=== PATIENT | male | born 1965 | race Caucasian/White ===

== ENCOUNTER 2023-09-01 14:25 | Inpatient (IN) | payer OTHER, SELFPAY ==
[2023-09-01] VITALS (33 sets, daily range): BP systolic 71–104; BP diastolic 35–70; BMI 27.3
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
[2023-09-01] MEDS: NSS 1000 IV ×3 (10:31→18:26)
[2023-09-01 10:34] LABS: % Basophils 0.4 % (0-2); % Eosinophils 1.8 % (0-6); % Immature Granulocytes 0.2 % (0-0.5); % Lymphocytes 23.1 % (20.5-51.1); % Monocytes 11.7 % (1.7-9.3); % Neutrophils 62.8 % (42.2-75.2); Absolute Eosinophils 0.1 10^3/uL (0-0.7); Absolute Lymphocytes 1.2 10^3/uL (1.2-3.4); Absolute Monocytes 0.6 10^3/uL (0.1-0.6); Absolute Neutrophils 3.2 10^3/uL (1.4-6.5); Hematocrit 37.9 % (39.0-52.0); Mean Corp Hgb Conc. 34.3 g/dL (33.0-37.0); Mean Corpuscular Hgb 32.3 pg (27.0-31.0); Nucleated Red Blood Cells % 0 % (-); Platelet Count 196 10^3/uL (130-400); Red Blood Cell Count 4.03 10^6/uL (4.70-6.10); Red Cell Dist. Width 12.8 % (11.5-14.5); White Blood Cell Count 5.1 10^3/uL (4.8-10.8)
[2023-09-01 10:45] LABS: ALT (SGPT) 25 U/L (0-50); AST (SGOT) 34 U/L (17-59); Albumin 3.7 g/dl (3.5-5.0); Alkaline Phosphatase 71 U/L (38-126); Blood Urea Nitrogen 16 mg/dl (9-20); Calcium 8.6 mg/dl (8.4-10.2); Carbon Dioxide 23 mmol/L (22-30); Chloride 105 mmol/L (98-107); Estimated Creatinine Clearance 91 ml/min; Glucose 148 mg/dl (70-99); Potassium 3.6 mmol/L (3.5-5.1); Sodium 137 mmol/L (135-145); Total Bilirubin 2.1 mg/dl (0.2-1.3); Total Protein 6.1 g/dl (6.3-8.2); eGFR > 60.00
[2023-09-01 10:56] LABS: Troponin I < 0.012 ng/ml
[2023-09-01 10:57] LABS: INR 0.96; PT 12.8 Sec (11.4-14.6)
[2023-09-01 10:58] LABS: APTT 24.2 Sec (23.4-35.0)
[2023-09-01] MEDS: KCL 40 MEQ PO (11:27)
[2023-09-01 11:30] LABS: Alcohol None Detected
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
[2023-09-01 15:40] LABS: TSH Reflex To Free T4 0.82 uIU/ml (0.47-4.68)
[2023-09-01 17:04] LABS: COVID-19 Antigen Negative (Negative)
[2023-09-01 18:06] LABS: Urine Albumin Negative (Neg - Trace); Urine Bilirubin Negative (Negative); Urine Character Clear (Clear); Urine Color Yellow; Urine Glucose Negative (Negative); Urine Ketone Negative (Negative); Urine Leukocyte Negative (Negative); Urine Nitrite Negative (Negative); Urine Occult Blood Negative (Negative); Urine Urobilinogen Negative (Neg - 1+)
[2023-09-01 21:25] LABS: Troponin I < 0.012 ng/ml
[2023-09-01] MEDS: LIPITOR 80 MG PO (22:30)
--- NOTE | 2023-09-01 23:28 | PTCARENOTE ---
Pt received start of shift, HR SR/SB 40s-60s. NSS infusing at 80mL/hr per order. Pt in bed with son at bedside Pt admission completed with assistance from pt's son. Educated pt and pt's son on plan of care. No questions at this time. Pt denies any
dizziness/lightheadedness at this time. Informed to notify RN if any changes, call escobedo within reach.
[2023-09-02 03:52] VITALS: BP 96/62
[2023-09-02 04:25] LABS: Hematocrit 35.4 % (39.0-52.0); Hemoglobin 12.2 g/dL (13.0-18.0); Mean Corp Hgb Conc. 34.5 g/dL (33.0-37.0); Mean Corpuscular Hgb 32.5 pg (27.0-31.0); Mean Corpuscular Volume 94.4 fL (80.0-94.0); Mean Platelet Volume 10.4 fL (7.4-10.4); Platelet Count 189 10^3/uL (130-400); Red Blood Cell Count 3.75 10^6/uL (4.70-6.10); Red Cell Dist. Width 12.9 % (11.5-14.5); White Blood Cell Count 3.9 10^3/uL (4.8-10.8)
[2023-09-02 04:49] LABS: Blood Urea Nitrogen 11 mg/dl (9-20); Calcium 8.5 mg/dl (8.4-10.2); Carbon Dioxide 24 mmol/L (22-30); Chloride 112 mmol/L (98-107); Estimated Creatinine Clearance 104 ml/min; Glucose 79 mg/dl (70-99); Magnesium 2.1 mg/dl (1.6-2.3); Potassium 3.9 mmol/L (3.5-5.1); Sodium 139 mmol/L (135-145); eGFR > 60.00
[2023-09-02 07:52] VITALS: BP 122/81
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
[2023-09-02] MEDS: PLAVIX 75 MG PO (09:14)
[2023-09-02] MEDS: FLUSH (NSS) 1 FLUSH IV (09:14)
[2023-09-02 09:17] VITALS: BP 113/67; BP 114/81; BP 116/72; PULSE 58; PULSE 59; PULSE 65
[2023-09-02 09:22] VITALS: BP 116/72
[2023-09-02 09:23] VITALS: BP 114/81
--- NOTE | 2023-09-02 10:38 | PTCARENOTE ---
"Patient NPO x meds. Seen by cardiology and the patient's son was telephoned to translate. Plan was for the patient to have a linq recorder implanted, however when the tailings dam laborer came for the patient, he refused the procedure. Notified the hospitalist "Theresa"and cardiology PA of his refusal for linq recorder and that he would prefer to follow up with his own data entry email processor."
--- NOTE | 2023-09-02 10:39 | W.PN.UPDATE ---
Update Note
Progress Note Update
patient now refusing linq stating he wants to follow up with his rubber moulding machine operator to discuss before committing to linq. diet ordered. son states he will call today to arrange appt with Dr. Espinosa. discussed with nursing
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
[2023-09-02 11:42] VITALS: BP 122/72
--- NOTE | 2023-09-02 12:05 | CM ---
spoke to pt in room with son on the phone to translate. pt lives with son in a 2 story home with no steps to enter. he denies any dc planning needs or dme's. plan is for dc to home when medically stable.
--- NOTE | 2023-09-02 13:17 | PTCARENOTE ---
Visitor at the bedside, son is planning on coming back later this afternoon. Patient tolerated eating a late breakfast and encouraged to get oob and ambulate. Patient walked in the alberto and sat in the visitor's lounge. Remained in SB/SR with HR 50's
to 60's, offers no complaints.
--- NOTE | 2023-09-02 14:37 | W.PN.HOSP.TC ---
Today's Communication/Plan
-
dc home
Assessment / Plan
Assessment / Plan
Assessment:
Bradycardia with hypotension
Prior History of sinus bradycardia
- s/p atropine with improvement
- unclear etiology overall
- CT head/c-spine negative
- trop neg
- noted prior episode with workup negative
- HR improved off BB, to be held at discharge
- TSH normal
- infectious workup (fever, hypothermia) so far negative
- Echo: Normal left ventricular chamber size. Normal left ventricular wall thickness. Low normal left ventricular systolic function. Left ventricular ejection fraction is 50-55% by visual estimate.� There is mild hypokinesis of the distal
anteroseptal, inferoseptal, and apical wall� stage I diastolic dysfunction suggestive of abnormal relaxation.
�Normal right ventricular size and function. Indexed LA volume is mildly abnormal (35-41 mL/m2). Mild tricuspid regurgitation. Estimated pulmonary artery pressure of 32 mmHg, assuming a right atrial pressure of 3 mmHg.
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
- no driving for 7 days
CAD status post CO with proximal LAD stent at [facility] 2018
- continue Statin/Plavix
- hold BB
Ischemic cardiomyopathy with EF 45%
Essential HTN
Former smoker
DVT ppx: SCDs
Code: Full
More than 30 minutes spent in discharge including
Final examination of the patient
Summarizing hospital stay
Instructions for continuing care to all relevant caregivers
Preparation of discharge records, prescriptions, and referral forms
Total time spent (in minutes): 41
Anticipated Discharge: Today
Subjective/Interval History
-
Date of Service: September 02, 2023
denies any complaints
LINQ offered, patient declined
Objective Data
-
Labs:
Laboratory Results
09/02/23
03:58
WBC 3.9 L
Hgb 12.2 L
Hct 35.4 L
Plt Count 189
Sodium 139
Potassium 3.9
Chloride 112 H
Carbon Dioxide 24
BUN 11
Creatinine 0.7
Glucose 79
Calcium 8.5
Vital Signs:
Vital Signs
Temp Pulse Resp BP Pulse Ox
98 F 58 20 122/72 98
09/02/23 11:41 09/02/23 12:45 09/02/23 11:41 09/02/23 11:42 09/02/23 11:41
I&O
09/01/23 09/02/23 09/03/23
06:59 06:59 06:59
Intake Total 720 / 720 240 / 240
Output Total 1150 / 1150
Balance 720 / 720 -910 / -910
Physical Exam
-
General: No Apparent Distress
HEENT: Normocephalic and Atraumatic
Respiratory: Negative Wheezes or Rales
Cardiac: Regular Rhythm and S1/S2
GI: Soft
Musculoskeletal: No Edema
Neuro: AO x 3
Psych: Calm
Data Reviewed
-
Total Time Spent with Patient (in minutes): 41
Labs: Labs Reviewed by me
--- NOTE | 2023-09-02 14:51 | W.DS.TRANS ---
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
-
Discharge Instructions:
Discharge Diagnosis/Procedures bradycardia, low blood pressure
Diet Low Cholesterol
Activity As tolerated
Driving Restrictions Not until seen by your Dr
Bathing Restrictions None
Instructions:
Stand-Alone Forms:
Changes to Home Medications: Yes
Discharge Medications:
DC Medications w/original date entered in [employer]
atorvastatin 80 mg tablet 80 mg PO HS High Cholesterol 01/20/17
clopidogrel 75 mg tablet 75 mg PO DAILY Blood Clot Prevention/Tx 01/20/17
nitroglycerin 0.4 mg sublingual tablet 0.4 mg sublingual [id number] PRN chest pain 01/20/17
Home Medication Changes
BB stopped
Pending Results: No
Total time spent discharging patient (in min): 41
--- NOTE | 2023-09-02 15:16 | PTCARENOTE ---
Dr. Trinidad in to see the patient and he is ok for discharge and to follow up with his nature photographer. Reviewed discharge instructions with the patient's son who was translating, reinforced no driving and to see nature photographer vivian. Patient discharged
home with his son.
--- NOTE | 2023-09-02 15:17 | PTCARENOTE ---
Reinforced to the patient's son that his father should no longer take his beta caryn.
== END 2023-09-02 17:07 | disposition home or self-care (01) | DRG 310 ==
LOC: IVU 14:25
PROVIDERS: ADMITTING PHYSICIAN Internal Medicine; EMERGENCY PHYSICIAN Emergency Medicine; FAMILY PHYSICIAN Internal Medicine; OTHER PHYSICIAN Internal Medicine Cardiovascular Disease
DX: R00.1 Bradycardia, unspecified (principal); I95.9 Hypotension, unspecified; R41.82 Altered mental status, unspecified; I25.10 Atherosclerotic heart disease of native coronary artery without angina pectoris; I10 Essential (primary) hypertension; I25.5 Ischemic cardiomyopathy; R68.0 Hypothermia, not associated with low environmental temperature; R55 Syncope and collapse; V49.40XA Driver injured in collision with unspecified motor vehicles in traffic accident, initial encounter; Y92.414 Local residential or business street as the place of occurrence of the external cause; I25.2 Old myocardial infarction; Z11.52 Encounter for screening for COVID-19; Z87.891 Personal history of nicotine dependence; Z95.5 Presence of coronary angioplasty implant and graft; Z79.02 Long term (current) use of antithrombotics/antiplatelets
CPT/HCPCS: 70450; 71045; 72125; 80048; 80053; 81003; 82077; 83735; 84443; 84484; 85025; 85027; 85610; 85730; 86850; 86900; 86901; 87040; 87502; 87811; 93005; 93306; 96360; 96361; 99291

== ENCOUNTER → 2023-10-13 06:12 | Day surgery (SDC) | payer OTHER, SELFPAY ==
[2023-10-13 06:25] VITALS: BP 121/75
[2023-10-13 06:30] VITALS: BMI 26.3
[2023-10-13 07:03] LABS: Hematocrit 41.5 % (39.0-52.0); Hemoglobin 14.1 g/dL (13.0-18.0); Mean Corpuscular Volume 94.3 fL (80.0-94.0); Mean Platelet Volume 10.5 fL (7.4-10.4); Platelet Count 223 10^3/uL (130-400); Red Cell Dist. Width 12.9 % (11.5-14.5); White Blood Cell Count 5.6 10^3/uL (4.8-10.8)
--- NOTE | 2023-10-13 07:09 | PTCARENOTE ---
Dr Carnes at pt bedside speaking to pt and pt's son. Pt's son is interpreting for pt due to pt understands little Bahamian. Pt's primary language is Ukranian.
--- NOTE | 2023-10-13 07:17 | PTCARENOTE ---
Dr Carnes at pt bedside speaking to pt and pt's son (pt's son interpreting). Pt's son states pt is not agreeable to a pacemaker or defibrillator. Pt's son states pt is agreeable to a loop recorder but not any other device.
[2023-10-13 07:20] LABS: Blood Urea Nitrogen 16 mg/dl (9-20); Calcium 9.8 mg/dl (8.4-10.2); Carbon Dioxide 27 mmol/L (22-30); Chloride 106 mmol/L (98-107); Estimated Creatinine Clearance 96 ml/min; Glucose 102 mg/dl (70-99); Potassium 4.2 mmol/L (3.5-5.1); Sodium 138 mmol/L (135-145); eGFR > 60.00
--- NOTE | 2023-10-13 07:27 | PTCARENOTE ---
Pt declined pacemaker and defibrillator but agreed to loop recorder.
--- NOTE | 2023-10-13 09:32 | ITS.CL.IMPLP ---
[employer] Lettering - Implant Loop
Implant Loop
Procedure Report:
ILR implant
Date of Procedure: 10/13/2023
Patient : 02/13/1966
Procedure: Insertable Loop Recorder
Indication: Unexplained syncope likely due to bradycardia
Implant: Reveal Linq1: Medtronic; Model# LNQ 1 1; Serial# [id number]
Technique: The patient was scheduled for EP study and either pacemaker or ICD implantation but the patient refused both pacemaker and ICD implantation after discussion with patient and son. Of note he refused pacemaker at prior admission for
syncope. As such we did not perform EP study and the patient elected to have a implantable loop recorder implanted because he wants to see the data from the recorder at future episodes of syncope and then may be agreeable to a device. I discussed
risk benefits and treatment alternatives for his refusal for the above implantation. I also placed him on a strict driving restriction and he agrees to not drive until the mechanism of syncope is determined.
The patient was prepped and draped in the usual fashion. Local anesthetic was applied to the left prepectoral subcutaneous tissue. A subcutaneous pocket was created with blunt dissection. Hemostasis was excellent. The device was placed in the
pocket. The skin was closed with steri-strips. The estimated blood loss was minimal. There were no complications.
Final Programming: FVT 231 30/40 beats
VT 176 16 beats
Asystole 3 sec
Jasiel 30 bpm for 4 beats
AF On AF only.
Conclusion: Uncomplicated insertable loop implant.
Recommendation: Routine Reveal care. I placed the patient on strict driving restriction and told this to patient and son. I communicated this to Dr. Espinosa as well.
cc: Dr. Shay Espinosa [facility]
== END | disposition home or self-care (01) ==
LOC: CATH 06:12
PROVIDERS: ATTENDING PHYSICIAN Internal Medicine Cardiovascular Disease; FAMILY PHYSICIAN Internal Medicine
DX: Z09 Encounter for follow-up examination after completed treatment for conditions other than malignant neoplasm (principal); R55 Syncope and collapse
CPT/HCPCS: 33285; 80048; 85027; C1764; C1894

== ENCOUNTER → 2023-11-17 09:08 | Outpatient (REF) | payer OTHER, SELFPAY ==
--- NOTE | 2023-11-17 11:37 | EEG.RPT ---
Electroencephalogram Report
Recording
Date of EE11/17/23
Type of EEG: Routine
Length of EEG recordin minutes
Done with Video Recording: Yes
Patient Status: Outpatient
Recording Conditions: Awake, Drowsy and Asleep
Hyperventilation Performed: No
Photic Stimulation Performed: Yes
Report
LESS THAN 1 HOUR EEG REPORT
EEG INTERPRETATION:
Unremarkable EEG for age in wakefulness through stage 1 sleep
CLINICAL CORRELATION:
A normal EEG does not rule out a diagnosis of epilepsy. If clinical suspicion for seizure persists, a prolonged recording may be warranted.
Clinical correlation is advised.
METHODS:
A 21 channel digitized electroencephalogram (EEG) was performed in the Clinical Neurophysiology Laboratory. The 10/20 international system of electrode placement was used with ECG and lateral/vertical eye movements recorded. Persyst quantitative EEG
analysis was performed.
ELECTROENCEPHALOGRAPHER IMPRESSION(S):
Quality of study
Good
Background
Unremarkable, well maintained, medium amplitude alpha-frequency and unremarkable anterior-posterior voltage gradient
With eye opening the background activity changed to a low voltage mixture of frequencies.
Sleep
Drowsiness present
Stage 1 sleep present
Hyperventilation
Did not activate the record
Photic Stimulation
Did activate the record at some intermediate flash frequencies
ECG
Normal sinus rhythm
== END ==
LOC: EEG 09:08
PROVIDERS: ATTENDING PHYSICIAN Internal Medicine
DX: R55 Syncope and collapse (principal); G40.309 Generalized idiopathic epilepsy and epileptic syndromes, not intractable, without status epilepticus
CPT/HCPCS: 95816

== ENCOUNTER → 2023-11-24 08:04 | Day surgery (SDC) | payer OTHER, SELFPAY ==
[2023-11-24] VITALS (9 sets, daily range): BP systolic 106–124; BP diastolic 67–78; BMI 26.2
[2023-11-24 08:49] LABS: Hematocrit 40.9 % (39.0-52.0); Hemoglobin 14.5 g/dL (13.0-18.0); Mean Corp Hgb Conc. 35.5 g/dL (33.0-37.0); Mean Corpuscular Hgb 32.4 pg (27.0-31.0); Mean Corpuscular Volume 91.3 fL (80.0-94.0); Mean Platelet Volume 10.2 fL (7.4-10.4); Platelet Count 242 10^3/uL (130-400); Red Blood Cell Count 4.48 10^6/uL (4.70-6.10); Red Cell Dist. Width 12.6 % (11.5-14.5); White Blood Cell Count 4.3 10^3/uL (4.8-10.8)
[2023-11-24 08:58] LABS: Blood Urea Nitrogen 16 mg/dl (9-20); Carbon Dioxide 24 mmol/L (22-30); Chloride 105 mmol/L (98-107); Estimated Creatinine Clearance 108 ml/min; Glucose 102 mg/dl (70-99); Potassium 4.1 mmol/L (3.5-5.1); Sodium 141 mmol/L (135-145); eGFR > 60.00
--- NOTE | 2023-11-24 10:30 | ITS.CL.ABL ---
Catalyst Operator - Ablation
Ablation
Procedure Report:
ELECTROPHYSIOLOGY ABLATION REPORT
Date of Procedure: 11-24-2023
Referring: Dr. Shay Espionsa
INDICATION: Unexplained syncope
HISTORY: History of 45 to 50% with prior infarction
PROCEDURE:
Under ultrasound guidance and after informed consent 2 6 Amharic sheath were placed in the right femoral vein. Baseline intracardiac measurements were obtained in sinus rhythm. Sinus node recovery times at 600 ms and 500 ms were performed. 2
quadripolar catheters were placed to the heart with one of the right atrium and right ventricle and the catheter to the right ventricle recorded His bundle and right bundle conduction times. Pacing from 2 ventricular sites at the RV apex and the
Para-Hisian region were performed. 604 100 ms drivetrain's with extrastimuli plus burst pacing from 2 sites was performed.
Atrial decremental extrastimuli were delivered from the HRA and the CS.
MEASUREMENTS:
BASELINE
A-A: 800 ms
P-P: 800 ms
A-H: 106 ms
H-V 52 ms
P-R: 158 ms
QRS: 80 ms
QT: 380 ms
SNRT: Normal at 600 and 500 ms
AVN Wenckebach: 470 ms with block in the AH interval under conscious sedation
AVN Fast Pathway ERP: No dual jarrell physiology noted, 600�370
HIS-Purkinje System: Normal; no distal block
Retrograde Conduction Decremental, Retrograde Block 570 ms
RVA ERP: 270 ms/600ms 250 ms/400ms
Parahisian ERP: 270 ms/600ms 240 ms/400ms
The patient was noninducible for ventricular tachyarrhythmias with burst ventricular pacing, burst atrial pacing, and single double and triple extrastimuli from 2 sites 600 [address] She is for manually removed in the EP lab from
the right femoral vein with adequate hemostasis.
COMPLICATIONS: None
SUMMARY: Noninducible for ventricular tachy arrhythmia.
RECOMMENDATIONS:
1. Proceed to dual-chamber pacemaker placement and removal of ILR
2. Please see separate EPS report for details of subsequent dual-chamber pacemaker placement
--- NOTE | 2023-11-24 12:17 | ITS.CL.PACE ---
Television Maintenance Worker - Pacemaker Implant
Pacemaker Implant
Procedure Report:
Date of Procedure: November 24, 2023
Patient : 1965
Procedure: Pacemaker Implantation.
Indication: Unexplained syncope with a heart rate of 20. Symptomatic sick sinus syndrome with syncope. See separate EPS report where he was noninducible for ventricular arrhythmia with AV block at 470 ms in the AH interval.
Implants:
Pulse Generator: [employer]; Model# W1 DR 01; SN: [id number]
RA Lead: Medtronic; Model# 4574; SN: [id number]
RV Lead: Medtronic; Model# 4074; SN: [id number]
Removed hardware:
Medtronic product number L and Q11 serial number [id number] implanted October 13, 2023
Technique: A time out was performed. The procedure site was identified. The patient was anesthetized by the anesthesia service. Preoperative sedation was administered. The patient was prepped and draped in the usual fashion. Local anesthetic was
applied to the left prepectoral subcutaneous tissue. A 3 inch incision was made 2.5 inches below the left clavicle. A subcutaneous pocket was created with blunt and sharp dissection and hemostasis controlled with Bovie cautery. The left axillary
vein was accessed within the pocket without difficulty. Hemostasis was excellent. The leads were introduced with 7 Fr hemostatic peel away introducer sheaths. The ventricular lead was placed at the right ventricular apex. The atrial lead was placed
in the right atrial appendage. 10 volt pacing did not capture the diaphragm. The leads were secured to the pectoralis muscle and fascia. The leads were appropriately attached to the device. The pocket was irrigated with antibiotic solution. The
device and leads were placed in the pocket. The incision was closed in three layers with absorbable suture. The estimated blood loss was minimal. There were no complications.
After the device was placed the patient's ILR was removed with a stab incision and closed with a 4.0 Vicryl.
Pulse fluoroscopy: 2.5 minutes and 23.58 mGy
Lead Analysis:
RA lead: P: 4.4 mV; Threshold: 0.75 V @ 0.5 ms; Impedance: 684 ohms.
RV lead: R: 7.5 mV; Threshold: 0.5 V @ 0.5 ms; Impedance: 1121 ohms.
Final Programming: AAIR�DDDR 60-130 beats a minute
Conclusion: Uncomplicated Medtronic pacemaker implant.
Recommendation: Routine post pacemaker care. Patient can resume driving in 1 week. Patient has an outpatient wound check in 7 to 10 days.
--- NOTE | 2023-11-24 14:44 | W.PN.UPDATE ---
Update Note
Progress Note Update
58 yo male s/p EPS/ Pacemaker implant and Linq explant (same day) He feels good, mild inc pain, site stable, EKG SR, CXR no PTX, final read pending. He will resume Plavix in am. Activity restrictions reviewed. He will get one more dose of abx prior
to d/c after 4pm. He will have incision check appointment in 1 week at [facility].
[2023-11-24] MEDS: ANCEF 5 IV (16:00)
== END | disposition home or self-care (01) ==
LOC: CATH 08:04
PROVIDERS: ATTENDING PHYSICIAN Internal Medicine Cardiovascular Disease
DX: I49.5 Sick sinus syndrome (principal); R55 Syncope and collapse; E78.5 Hyperlipidemia, unspecified; I25.10 Atherosclerotic heart disease of native coronary artery without angina pectoris; Z79.82 Long term (current) use of aspirin
CPT/HCPCS: 33208; 93620; C1730; C1894; C1892; 71045; 76937; 80048; 85027; 85347; 93005; C1785; C1898; Q9967